=== PATIENT | female | born 1985 | race Caucasian/White ===

== ENCOUNTER 2024-06-22 09:08 | Outpatient (CLI) | payer BC ==
[2024-06-22 11:31] LABS: Hematocrit 42.4 % (34.9-44.5)
[2024-06-22 11:38] LABS: BHCG - Serum Negative (NEGATIVE); Pregs Control Background? CLEAR/WHITE (CLR/WHITE); Pregs Control Bar Appear? YES (CONTROL BAR)
== END 2024-06-22 09:09 | disposition home or self-care (01) ==
LOC: CSHLAB 09:08
PROVIDERS: ATTEND Otolaryngology
DX: Z01.812 Encounter for preprocedural laboratory examination (principal); R22.1 Localized swelling, mass and lump, neck
CPT/HCPCS: 84703; 85014

== ENCOUNTER 2024-06-27 06:32 | Day surgery (SDC) | payer BC ==
[2024-06-22 10:07] VITALS: BMI 23.0
[2024-06-27] MEDS ORDERED: Mupirocin 2% Ointment 22 GM Tube ONE (09:06)
[2024-06-27] MEDS ORDERED: Dexamethasone 20 MG/5 ML VIAL ONE (09:12)
[2024-06-27] MEDS ORDERED: Midazolam HCl 2 mg/2 ml Vial ONE (09:12)
[2024-06-27] MEDS ORDERED: fentaNYL 50 mcg/mL 1 mL Vial ONE (09:12)
[2024-06-27] MEDS ORDERED: Ondansetron PF 4 MG/2 ML Vial ONE (09:12)
[2024-06-27] MEDS ORDERED: Lidocaine 1% PF 5 ML VIAL ONE (09:12)
[2024-06-27] MEDS ORDERED: PROPOFOL 20 ML ONE (09:12)
[2024-06-27] MEDS ORDERED: Glycopyrrolate 0.2 MG/ML 5 ML SYRINGE ONE (09:13)
[2024-06-27] MEDS ORDERED: CEFAZOLIN 1 GM VIAL ONE (09:30)
[2024-06-27] MEDS ORDERED: Lidocaine 1% w/Epinephrine 1:100K 20 ML VIAL ONE (10:04)
== END 2024-06-27 11:58 | disposition home or self-care (01) ==
LOC: CSHSDC 06:32
PROVIDERS: ATTEND Otolaryngology
PROC: 0HB4XZZ Excision of Neck Skin, External Approach (ICD-10-PCS; principal; 2024-06-27)
DX: L92.8 Other granulomatous disorders of the skin and subcutaneous tissue (principal); E03.9 Hypothyroidism, unspecified; J32.9 Chronic sinusitis, unspecified; G43.909 Migraine, unspecified, not intractable, without status migrainosus; F17.200 Nicotine dependence, unspecified, uncomplicated; Z85.828 Personal history of other malignant neoplasm of skin; Z79.2 Long term (current) use of antibiotics; Z79.51 Long term (current) use of inhaled steroids; Z79.899 Other long term (current) drug therapy
CPT/HCPCS: 88305; 88312; 88341; 88342; J0690; J1100; J2250; J2405; J2704; J3010